=== PATIENT | female | born 1985 | race Caucasian/White ===

== ENCOUNTER 2020-02-14 03:21 | Emergency (ER) | payer OTHER ==
[~2020-02-14] VITALS: Ht 149.9 cm; Wt 68.2 kg
[2020-02-14 03:33] VITALS: Ht 149.9 cm; Wt 68.2 kg
[2020-02-14] MEDS ORDERED: LITHIUM (03:36)
[2020-02-14] MEDS ORDERED: CLONAZEP (03:37)
[2020-02-14 03:40] LABS: BASOPHILS 0.1 % (0-2); EOSINOPHILS 0.7 % (0-7); HEMATOCRIT 37.7 % (36.0-48.0); HEMOGLOBIN 12.4 g/dL (12-16); IMMATURE GRANULOCYTES 0.4 % (0-5); LYMPHOCYTES 14.3 % (15-50); MCHC 32.9 g/dL (31.0-37.0); MCV 88.3 fL (80.0-100.0); MEAN PLATELET VOLUME 9.5 fL (7.4-10.4); MONOCYTES 7.5 % (2-11); PLATELET COUNT 245 10x3/uL (130-400); RBC 4.27 10x6/uL (4.00-5.40); RDW 15.3 % (11.5-14.5); WBC 16.8 10x3/uL (4.8-10.8)
[2020-02-14 03:47] LABS: ANION GAP 11.4 mmol/L (8-16); CALCIUM 8.7 mg/dL (8.5-10.1); CARBON DIOXIDE 26.7 mmol/L (21.0-32.0); POTASSIUM - SERUM 3.1 mmol/L (3.5-5.1)
[2020-02-14 03:53] LABS: ALBUMIN 3.9 g/dL (3.4-5.0); BILIRUBIN - TOTAL 0.33 mg/dL (0.2-1.3); PROTEIN - SERUM 7.1 g/dL (6.4-8.2)
--- NOTE | 2020-02-14 03:54 | NUR ---
PATIENT IN ER 21 WITH A SUICIDIAL IDEATION OF WANTING TO JUMP IN FRONT OF A TRAIN. SHE HAS SCHIZOPHRENIA. SHE WAS RELEASED FROM [facility] TODAY. SHE IS VERY FLAT AND SPEAKS WITH A MONOTONE VOICE. SHE HAS A FLIGHT OF IDEAS. BIZZARE BEHAVIOR. PATIENT WILL BE PLACED ON 1 TO 1 AND 1-800 NUMBER [phone] FOR FUTURE REFERENCE.
[2020-02-14 04:40] LABS: BILIRUBIN NEGATIVE (NEGATIVE); GLUCOSE NEGATIVE (NEGATIVE); KETONE NEGATIVE (NEGATIVE); NITRITE NEGATIVE (NEGATIVE); UROBILINOGEN NORMAL (NORMAL)
[2020-02-14 04:48] LABS: UDS - AMPHET NEGATIVE QUAL (NEGATIVE); UDS - BARB NEGATIVE QUAL (NEGATIVE); UDS - BENZO NEGATIVE QUAL (NEGATIVE); UDS - COCAINE NEGATIVE QUAL (NEGATIVE); UDS - OPIATE NEGATIVE QUAL (NEGATIVE); UDS - PCP NEGATIVE QUAL (NEGATIVE); UDS - THC NEGATIVE QUAL (NEGATIVE)
[2020-02-14 06:09] VITALS: BP 128/72
== END 2020-02-14 09:13 ==
LOC: D.ER 03:21
PROVIDERS: Emergency Medicine
DX: F23 Brief psychotic disorder (principal); Z59.0 Homelessness; E87.6 Hypokalemia; Z91.14 Patient's other noncompliance with medication regimen; R45.851 Suicidal ideations